=== PATIENT | male | born 1965 | race Two or more races ===

== ENCOUNTER 2023-05-07 16:12 | Emergency (ER) | payer MEDICARE, OTHER ==
[~2023-05-07] VITALS: Ht 177.8 cm; Wt 75.0 kg
[2023-05-07 16:24] VITALS: PULSE 85; RESP 20; O2SAT 100
[2023-05-07] MEDS ORDERED: SODIUM CHLORIDE 0.9% 1,000 ML IV ONE ×2 (16:30→16:45)
[2023-05-07] MEDS ORDERED: fentaNYL CITRATE 5 ML ONE (16:31)
[2023-05-07] MEDS ORDERED: ONDANSETRON HCL 4 MG/2 ML VIAL ONE (16:32)
[2023-05-07] MEDS ORDERED: HYDROmorphone HCL 2 MG/ML VL/or syr IV ONE (16:45)
[2023-05-07] MEDS ORDERED: fentaNYL CITRATE 100 MCG/2 ML VL IV ONE ×2 (16:45→17:45)
[2023-05-07] MEDS ORDERED: ONDANSETRON HCL 4 MG/2 ML VIAL IV ONE (16:45)
[2023-05-07 16:46] LABS: Basophils # (auto) 0 10 ^3/uL (0-0.2); Basophils % (auto) 0.6 % (0.0-2.0); Eosinophils # (auto) 0 10 ^3/uL (0-0.8); Eosinophils % (auto) 0.6 % (0.0-7.0); Hematocrit 48.8 % (41.0-53.0); Hemoglobin 16.8 g/dL (13.5-17.5); Lymphocytes # (auto) 3.3 10 ^3/uL (0.4-5.4); Lymphocytes % (auto) 41.5 % (10.0-50.0); Mean Corpuscular Hemoglobin 31.3 pg (28.0-32.0); Mean Corpuscular Hgb Conc. 34.5 g/dL (32.0-36.0); Mean Corpuscular Volume 90.8 fL (80.0-100.0); Monocytes # (auto) 0.8 10 ^3/uL (0-1.3); Monocytes % (auto) 10.4 % (0.0-12.0); Neutrophils # (auto) 3.8 10 ^3/uL (1.6-8.6); Neutrophils % (auto) 46.9 % (37.0-80.0); Nucleated Red Blood Cells % 0.1 %; Red Blood Cells 5.37 10^6/uL (4.5-5.90)
[2023-05-07] MEDS ORDERED: DexAMETHasone SOD PHOS 10MG/1ML VIAL INJ IV ONE (17:00)
[2023-05-07] MEDS ORDERED: CIPROFLOXACIN 0.3%OPTH(EYE) SOL 5ML EACHEYE ONE (17:00)
[2023-05-07] MEDS ORDERED: TETRACAINE HCL 0.5% OPTH(EYE) SOLN 4ML EACHEYE ONE (17:00)
[2023-05-07 17:14] LABS: Alanine Aminotransferase 63 U/L (7-40); Albumin 4.5 g/dL (3.2-4.8); Alkaline Phosphatase 26 U/L (46-116); Anion Gap 11 (5-15); Aspartate Aminotransferase 37 U/L (13-40); BUN/Creatinine Ratio 10.5 (10.0-20.0); Bilirubin, Total 0.6 mg/dL (0.2-1.0); Blood Urea Nitrogen 13 mg/dL (9-23); Carbon Dioxide 26 mmol/L (20-30); Chloride 104 mmol/L (98-107); Creatine Kinase IFCC 103 U/L (46-171); Glucose 105 mg/dL (74-106); Sodium 141 mmol/L (136-145); Total Protein 6.7 g/dL (5.7-8.2)
[2023-05-07 17:42] VITALS: TEMP 97.5
[2023-05-07 18:18] VITALS: O2SAT 98
[2023-05-07 18:34] VITALS: BP 161/91; PULSE 71; RESP 16
== END 2023-05-07 18:33 | disposition short-term general hospital (02) ==
LOC: ER 16:12
DX: T20.09XA Burn of unspecified degree of multiple sites of head, face, and neck, initial encounter (principal); T22.00XA Burn of unspecified degree of shoulder and upper limb, except wrist and hand, unspecified site, initial encounter; W86.8XXA Exposure to other electric current, initial encounter; Y93.89 Activity, other specified; Y92.89 Other specified places as the place of occurrence of the external cause; Y99.8 Other external cause status
CPT/HCPCS: 36415; 80053; 82550; 84484; 85025; 96361; 96374; 96375; 96376; 99285; J1100; J1170; J2405; J3010; J7030; 16020